=== PATIENT | male | born 1965 | race Caucasian/White ===

== ENCOUNTER 2018-07-25 20:14 | Emergency (ER) | payer BC, OTHER ==
[2018-07-25] MEDS: IPRATROPIUM (NEB) 0.5 MG/2.5 ML AMP INH (22:11)
[2018-07-25] MEDS: ALBUTEROL 0.083% (NEB) 2.5 MG/3 ML AMP INH (22:11)
[2018-07-25] MEDS: METHYLPREDNISOLONE 125 MG INJ IV (22:34)
[2018-07-25] MEDS: SOD CHLORIDE 0.9% 500 ML IV (22:35)
[2018-07-25 22:46] LABS: ADD MAN DIFF? NO
[2018-07-25 22:50] LABS: WHITE BLOOD COUNT 5.6 10^3/ul (4.8-10.8)
[2018-07-25 22:50] LABS: BASOPHILS % 0.5 % (0.0-2.0); EOSINOPHILS # 0.3 10^3/ul (0.0-0.5); EOSINOPHILS % 4.7 % (0.0-7.0); HEMOGLOBIN 14.5 g/dl (14.0-18.0); LYMPHOCYTES # 1.7 10^3/ul (0.8-2.9); LYMPHOCYTES % 30.5 % (15.0-51.0); MEAN CORPUSCULAR HEMOGLOBIN 30.5 pg (29.0-33.0); MEAN CORPUSCULAR HGB CONC 34.5 g/dl (32.0-37.0); MEAN CORPUSCULAR VOLUME 88.2 fl (82.0-101.0); MEAN PLATELET VOLUME 10.1 fl (7.4-10.4); MONOCYTE # 0.4 10^3/ul (0.3-0.9); MONOCYTES % 6.6 % (0.0-11.0); NEUTROPHIL # 3.2 10^3/ul (1.6-7.5); NEUTROPHILS % 57.5 % (39.0-77.0); PLATELET COUNT 105 10^3/UL (140-415); RED BLOOD COUNT 4.76 10^6/ul (4.70-6.10); RED CELL DISTRIBUTION WIDTH 12.8 % (11.5-14.5)
[2018-07-25 23:06] LABS: ANION GAP 12 (8-16); BLOOD UREA NITROGEN 13 mg/dl (7-20); CALCIUM 9.2 mg/dl (8.4-10.2); CARBON DIOXIDE 31 mmol/L (21-31); CHLORIDE 98 mmol/L (97-110); CREATININE 0.74 mg/dl (0.61-1.24); GLUCOSE 258 mg/dl (70-220); SODIUM 137 mmol/L (135-144)
[2018-07-25] MEDS: OXYCODONE/ACETAMINOPHEN (10/325) TAB PO (23:46)
== END 2018-07-26 00:30 | disposition home or self-care (01) ==
LOC: E/R 07-26 00:30
DX: J22 Unspecified acute lower respiratory infection (principal); J20.9 Acute bronchitis, unspecified; D69.6 Thrombocytopenia, unspecified; I10 Essential (primary) hypertension; E11.9 Type 2 diabetes mellitus without complications; F17.210 Nicotine dependence, cigarettes, uncomplicated; Z79.84 Long term (current) use of oral hypoglycemic drugs
CPT/HCPCS: 36415; 71045; 80048; 82962; 85025; 93005; 94664; 96361; 96374; 99284-25

== ENCOUNTER 2018-07-31 05:35 | Inpatient (IN) | payer BC ==
[2018-07-31] MEDS: IPRATROPIUM (NEB) 0.5 MG/2.5 ML AMP NEB (06:09)
[2018-07-31] MEDS: LEVALBUTEROL (NEB) 1.25 MG/0.5 ML AMP INH (06:09)
[2018-07-31 06:57] LABS: ADD MAN DIFF? NO
[2018-07-31 06:58] LABS: WHITE BLOOD COUNT 11.2 10^3/ul (4.8-10.8)
[2018-07-31 06:59] LABS: BASOPHILS % 0.3 % (0.0-2.0); EOSINOPHILS # 0.1 10^3/ul (0.0-0.5); EOSINOPHILS % 0.7 % (0.0-7.0); HEMATOCRIT 46.8 % (42.0-52.0); HEMOGLOBIN 16.2 g/dl (14.0-18.0); LYMPHOCYTES # 2.4 10^3/ul (0.8-2.9); LYMPHOCYTES % 21.2 % (15.0-51.0); MEAN CORPUSCULAR HEMOGLOBIN 30.3 pg (29.0-33.0); MEAN CORPUSCULAR HGB CONC 34.6 g/dl (32.0-37.0); MEAN CORPUSCULAR VOLUME 87.6 fl (82.0-101.0); MONOCYTE # 0.7 10^3/ul (0.3-0.9); MONOCYTES % 6.1 % (0.0-11.0); NEUTROPHILS % 71.4 % (39.0-77.0); PLATELET COUNT 118 10^3/UL (140-415); RED BLOOD COUNT 5.34 10^6/ul (4.70-6.10); RED CELL DISTRIBUTION WIDTH 13.1 % (11.5-14.5)
[2018-07-31] MEDS: CEFTRIAXONE 1 GM/50 ML (PMX) 50 ML IVPB (06:59)
[2018-07-31] MEDS: SODIUM CHLORIDE 0.9% 1L BAG IV* (06:59)
[2018-07-31 07:18] LABS: INR 0.96; PROTIME 12.9 Sec (11.9-14.9)
[2018-07-31 07:19] LABS: PARTIAL THROMBOPLASTIN TIME 24.2 Sec (25.0-35.0)
[2018-07-31 07:30] LABS: ANION GAP 16 (8-16); BLOOD UREA NITROGEN 25 mg/dl (7-20); CALCIUM 10.2 mg/dl (8.4-10.2); CARBON DIOXIDE 31 mmol/L (21-31); CHLORIDE 96 mmol/L (97-110); CREATININE 0.94 mg/dl (0.61-1.24); POTASSIUM 3.8 mmol/L (3.5-5.1); SODIUM 139 mmol/L (135-144)
[2018-07-31 07:31] LABS: GLUCOSE 467 mg/dl (70-220)
[2018-07-31] MEDS: OXYCODONE/ACETAMINOPHEN (5/325) TAB PO ×2 (07:33→22:17)
[2018-07-31 07:35] LABS: LACTIC ACID 3.3 mmol/L (0.5-2.0)
[2018-07-31] MEDS: ALBUTEROL 0.5% (NEB) 2.5 MG/0.5 ML AMP NEB (07:40)
[2018-07-31] MEDS: MAGNESIUM SULFATE 2 GM/50 ML 50 ML IVPB (07:47)
[2018-07-31 07:55] LABS: TROPONIN-I < 0.012 ng/ml (0.000-0.120)
[2018-07-31] MEDS ORDERED: NACL 0.9% 3 ML SYG IV (08:30)
[2018-07-31] MEDS ORDERED: NA PHOSPHATE/BIPHOS 133 ML ENEMA PR (08:30)
[2018-07-31] MEDS: INSULIN ASPART [NOVOLOG] 3 ML PEN SC ×5 (08:30→21:58)
[2018-07-31] MEDS: INSULIN GLARGINE [LANTus] (100 UNITS/ML) SYG SC ×3 (08:30→21:57)
[2018-07-31] MEDS: AZITHROMYCIN 500MG/NS (PMX) 250 ML IVPB (08:49)
[2018-07-31] MEDS: NICOTINE (14 MG/24 HR) PATCH TRANSDERM (09:00)
[2018-07-31] MEDS: FAMOTIDINE 20 MG TAB PO ×2 (09:00→21:54)
[2018-07-31] MEDS: CEFEPIME 1GM/50 ML (PMX) 50 ML IV ×3 (09:00→23:56)
[2018-07-31] MEDS: FLUTICASONE/VILANTEROL 200-25 INH DEVICE INH ×2 (09:00→16:00)
[2018-07-31 09:16] LABS: LACTIC ACID 4.2 mmol/L (0.5-2.0)
[2018-07-31] MEDS: ACCU-CHEK XX ×5 (10:00→20:37)
[2018-07-31 11:07] LABS: LACTIC ACID 2.7 mmol/L (0.5-2.0)
[2018-07-31] MEDS ORDERED: ACCU-CHEK XX (11:30)
[2018-07-31] MEDS ORDERED: INSULIN ASPART [NOVOLOG] 3 ML PEN SC (11:50)
[2018-07-31] MEDS: ALBUTEROL/IPRATROPIUM (NEB) 3 ML AMP NEB ×4 (12:18→20:42)
[2018-07-31] MEDS ORDERED: GLUCOSE GEL 15 GRAM TUBE PO ×2 (13:30)
[2018-07-31] MEDS ORDERED: GLUCAGON 1 MG INJ IM (13:30)
[2018-07-31] MEDS ORDERED: DEXTROSE 50% 50 ML SYRINGE IV ×2 (13:30)
[2018-07-31] MEDS ORDERED: GLUCOSE GEL 15 GRAM TUBE BUCCAL (13:30)
[2018-07-31] MEDS: METHADONE 10 MG TAB PO ×2 (14:00→22:00)
[2018-07-31] MEDS: HEPARIN 5,000 UNIT/0.5 ML VIAL SC ×2 (14:00→21:56)
[2018-07-31] MEDS: predniSONE 20 MG TAB PO (14:59)
[2018-07-31] MEDS: NPH, HUMAN INSULIN ISOPHANE 3ML VIAL SC (15:06)
[2018-07-31] MEDS: LOSARTAN 50 MG TAB PO (15:07)
[2018-07-31] MEDS: LINAGLIPTIN 5 MG TABLET PO (15:07)
[2018-07-31] MEDS: metFORMIN 500 MG TAB PO ×2 (15:08→21:55)
[2018-07-31] MEDS: HYDROCHLOROTHIAZIDE 25 MG TAB PO (15:10)
[2018-07-31] MEDS: MULTIVITAMINS THERAPEUTIC TAB PO (15:10)
[2018-07-31] MEDS: MONTELUKAST 10 MG TAB PO (21:55)
[2018-07-31] MEDS: SOD CHLORIDE 0.9% 1,000 ML IV (23:56)
[2018-08-01] MEDS: NICOTINE (14 MG/24 HR) PATCH TRANSDERM ×2 (00:13→08:08)
[2018-08-01] MEDS: METHADONE 10 MG TAB PO (01:14)
[2018-08-01] MEDS: ALBUTEROL/IPRATROPIUM (NEB) 3 ML AMP NEB ×6 (01:31→20:46)
[2018-08-01] MEDS: HEPARIN 5,000 UNIT/0.5 ML VIAL SC ×3 (06:42→22:49)
[2018-08-01 06:53] LABS: ADD MAN DIFF? NO
[2018-08-01 06:57] LABS: WHITE BLOOD COUNT 8.4 10^3/ul (4.8-10.8)
[2018-08-01 06:57] LABS: ABNORMAL IP MESSAGE 1; BASOPHILS % 0.2 % (0.0-2.0); EOSINOPHILS # 0.1 10^3/ul (0.0-0.5); EOSINOPHILS % 1.2 % (0.0-7.0); HEMATOCRIT 40.2 % (42.0-52.0); HEMOGLOBIN 13.4 g/dl (14.0-18.0); LYMPHOCYTES # 1.7 10^3/ul (0.8-2.9); LYMPHOCYTES % 19.8 % (15.0-51.0); MEAN CORPUSCULAR HEMOGLOBIN 30.1 pg (29.0-33.0); MEAN CORPUSCULAR HGB CONC 33.3 g/dl (32.0-37.0); MEAN CORPUSCULAR VOLUME 90.3 fl (82.0-101.0); MEAN PLATELET VOLUME 10.3 fl (7.4-10.4); MONOCYTE # 0.4 10^3/ul (0.3-0.9); MONOCYTES % 5.2 % (0.0-11.0); NEUTROPHIL # 6.1 10^3/ul (1.6-7.5); NEUTROPHILS % 73.1 % (39.0-77.0); PLATELET COUNT 93 10^3/UL (140-415); POSITIVE DIFF @See below; RED BLOOD COUNT 4.45 10^6/ul (4.70-6.10); RED CELL DISTRIBUTION WIDTH 13.1 % (11.5-14.5)
[2018-08-01 07:44] LABS: ALANINE AMINOTRANSFERASE 102 IU/L (13-69); ALBUMIN 3.3 g/dl (3.3-4.9); ALKALINE PHOSPHATASE 74 IU/L (42-121); ANION GAP 13 (8-16); ASPARTATE AMINO TRANSFERASE 38 IU/L (15-46); BILIRUBIN,INDIRECT 0.4 mg/dl (0-1.1); BILIRUBIN,TOTAL 0.4 mg/dl (0.2-1.3); BLOOD UREA NITROGEN 17 mg/dl (7-20); CALCIUM 8.8 mg/dl (8.4-10.2); CARBON DIOXIDE 26 mmol/L (21-31); CHLORIDE 103 mmol/L (97-110); CREATININE 0.78 mg/dl (0.61-1.24); GLUCOSE 321 mg/dl (70-220); MAGNESIUM 2.1 mg/dl (1.7-2.5); POTASSIUM 3.2 mmol/L (3.5-5.1); SODIUM 139 mmol/L (135-144); TOTAL PROTEIN 6.6 g/dl (6.1-8.1)
[2018-08-01] MEDS: INSULIN GLARGINE [LANTus] (100 UNITS/ML) SYG SC ×2 (08:00→20:39)
[2018-08-01] MEDS: ACCU-CHEK XX ×6 (08:01→20:31)
[2018-08-01] MEDS: CEFEPIME 1GM/50 ML (PMX) 50 ML IV ×2 (08:06→20:32)
[2018-08-01] MEDS: FLUTICASONE/VILANTEROL 200-25 INH DEVICE INH (08:07)
[2018-08-01] MEDS: LINAGLIPTIN 5 MG TABLET PO (08:08)
[2018-08-01] MEDS: EMPAGLIFLOZIN 10 MG TABLET PO (08:08)
[2018-08-01] MEDS: LOSARTAN 50 MG TAB PO (08:08)
[2018-08-01] MEDS: MULTIVITAMINS THERAPEUTIC TAB PO (08:08)
[2018-08-01] MEDS: OXYCODONE/ACETAMINOPHEN (5/325) TAB PO (08:09)
[2018-08-01] MEDS: metFORMIN 500 MG TAB PO ×2 (08:09→17:19)
[2018-08-01] MEDS: predniSONE 20 MG TAB PO (08:09)
[2018-08-01] MEDS: HYDROCHLOROTHIAZIDE 25 MG TAB PO (08:10)
[2018-08-01] MEDS: INSULIN ASPART [NOVOLOG] 3 ML PEN SC ×4 (08:13→17:20)
[2018-08-01] MEDS: FAMOTIDINE 20 MG TAB PO ×2 (08:22→20:31)
[2018-08-01] MEDS: AZITHROMYCIN 250 MG TAB PO (08:22)
[2018-08-01] MEDS: POTASSIUM CHLORIDE (SR) 20 MEQ TAB PO (11:44)
[2018-08-01] MEDS: CELECOXIB 100 MG CAP PO ×2 (11:45→20:31)
[2018-08-01] MEDS: LORAZEPAM 1 MG TAB PO (11:46)
[2018-08-01] MEDS: MONTELUKAST 10 MG TAB PO (20:32)
[2018-08-02] MEDS: ALBUTEROL/IPRATROPIUM (NEB) 3 ML AMP NEB ×6 (01:09→21:11)
[2018-08-02] MEDS: OXYCODONE/ACETAMINOPHEN (5/325) TAB PO ×2 (03:53→10:09)
[2018-08-02] MEDS: HYDROCODONE/APAP (5/325) TAB PO (05:59)
[2018-08-02] MEDS: HEPARIN 5,000 UNIT/0.5 ML VIAL SC ×3 (06:35→21:53)
[2018-08-02] MEDS: ACCU-CHEK XX ×6 (08:04→19:55)
[2018-08-02] MEDS: INSULIN ASPART [NOVOLOG] 3 ML PEN SC ×6 (08:09→21:51)
[2018-08-02] MEDS: NPH, HUMAN INSULIN ISOPHANE 3ML VIAL SC ×2 (08:10→10:24)
[2018-08-02] MEDS: FLUTICASONE/VILANTEROL 200-25 INH DEVICE INH (08:12)
[2018-08-02] MEDS: NICOTINE (14 MG/24 HR) PATCH TRANSDERM (08:13)
[2018-08-02] MEDS: CEFEPIME 1GM/50 ML (PMX) 50 ML IV ×2 (08:15→21:48)
[2018-08-02] MEDS: metFORMIN 500 MG TAB PO ×2 (08:16→16:56)
[2018-08-02] MEDS: HYDROCHLOROTHIAZIDE 25 MG TAB PO (08:17)
[2018-08-02] MEDS: LINAGLIPTIN 5 MG TABLET PO (08:17)
[2018-08-02] MEDS: EMPAGLIFLOZIN 10 MG TABLET PO (08:17)
[2018-08-02] MEDS: CELECOXIB 100 MG CAP PO ×2 (08:17→21:48)
[2018-08-02] MEDS: LOSARTAN 50 MG TAB PO (08:17)
[2018-08-02] MEDS: DOCUSATE SODIUM 100 MG CAP PO (08:18)
[2018-08-02] MEDS: predniSONE 20 MG TAB PO (08:18)
[2018-08-02] MEDS: FAMOTIDINE 20 MG TAB PO ×2 (08:18→21:49)
[2018-08-02] MEDS: AZITHROMYCIN 250 MG TAB PO (08:18)
[2018-08-02] MEDS: MULTIVITAMINS THERAPEUTIC TAB PO (08:18)
[2018-08-02] MEDS ORDERED: E LYTES MM (08:30)
[2018-08-02] MEDS ORDERED: CARBOXYMETHYLCELLULOSE MM (08:30)
[2018-08-02] MEDS ORDERED: BIOTENE DRY MOUTH MOISTURIZING MM (10:00)
[2018-08-02] MEDS: TIOTROPIUM 18 MCG CAPSULE INHA DEV INH (10:08)
[2018-08-02] MEDS: POTASSIUM CHLORIDE (SR) 20 MEQ TAB PO (10:09)
[2018-08-02] MEDS ORDERED: INSULIN ASPART [NOVOLOG] 3 ML PEN SC (11:50)
[2018-08-02] MEDS: BIOTENE DRY MOUTH MOISTURIZING MM (12:02)
[2018-08-02] MEDS: DICLOFENAC SODIUM 1% GEL 100 GM TUBE TP ×4 (12:04→21:50)
[2018-08-02] MEDS: METHYLNALTREXONE 12 MG/0.6 ML VIAL SC (13:29)
[2018-08-02] MEDS: DICYCLOMINE 10 MG CAP PO (18:08)
[2018-08-02] MEDS: INSULIN GLARGINE [LANTus] (100 UNITS/ML) SYG SC (21:48)
[2018-08-02] MEDS: MONTELUKAST 10 MG TAB PO (21:49)
[2018-08-02] MEDS: AMLODIPINE 2.5 MG TAB PO (21:49)
[2018-08-03] MEDS: OXYCODONE/ACETAMINOPHEN (5/325) TAB PO ×3 (00:06→18:10)
[2018-08-03] MEDS: ALBUTEROL/IPRATROPIUM (NEB) 3 ML AMP NEB ×6 (01:10→21:03)
[2018-08-03] MEDS: LORAZEPAM 1 MG TAB PO (03:18)
[2018-08-03] MEDS: ALBUTEROL/IPRATROPIUM (NEB) 3 ML AMP HHN (04:18)
[2018-08-03 05:57] LABS: AADO2 Arterial 90.8 mmHg (7.0-24.0); Allen Test ACCEPTAB; Arterial Base Excess 3.7 mmol/L (-3.0-3); Arterial Blood Gas Oxygen Sat 97.1 mmHG (95.0-98.0); Arterial COHb 0.4 % (0.0-3.0); Arterial Fraction of Oxyhgb 96.4 % (93.0-99.0); Arterial HCO3 28.9 mmol/L (22.0-26.0); Arterial MetHb 0.3 % (0.0-1.5); Arterial Total Hemglobin 14.8 g/dl (12.0-18.0); Arterial pCO2 45.8 mmhg (35-45); MODE NASAL CANNULA; Site Right Radial
[2018-08-03] MEDS: HEPARIN 5,000 UNIT/0.5 ML VIAL SC ×3 (06:06→21:29)
[2018-08-03] MEDS: ACCU-CHEK XX ×6 (07:25→19:55)
[2018-08-03] MEDS: TIOTROPIUM 18 MCG CAPSULE INHA DEV INH (08:41)
[2018-08-03] MEDS: metFORMIN 500 MG TAB PO ×2 (08:42→18:03)
[2018-08-03] MEDS: LINAGLIPTIN 5 MG TABLET PO (08:42)
[2018-08-03] MEDS: FAMOTIDINE 20 MG TAB PO ×2 (08:43→21:11)
[2018-08-03] MEDS: LOSARTAN 50 MG TAB PO (08:43)
[2018-08-03] MEDS: EMPAGLIFLOZIN 10 MG TABLET PO (08:43)
[2018-08-03] MEDS: HYDROCHLOROTHIAZIDE 25 MG TAB PO (08:43)
[2018-08-03] MEDS: predniSONE 20 MG TAB PO (08:43)
[2018-08-03] MEDS: CELECOXIB 100 MG CAP PO ×2 (08:43→21:10)
[2018-08-03] MEDS: MULTIVITAMINS THERAPEUTIC TAB PO (08:43)
[2018-08-03] MEDS: DICLOFENAC SODIUM 1% GEL 100 GM TUBE TP ×4 (08:44→21:13)
[2018-08-03] MEDS: NICOTINE (14 MG/24 HR) PATCH TRANSDERM (08:44)
[2018-08-03] MEDS: METHYLNALTREXONE 12 MG/0.6 ML VIAL SC (08:44)
[2018-08-03] MEDS: CEFEPIME 1GM/50 ML (PMX) 50 ML IV ×2 (08:45→21:09)
[2018-08-03] MEDS: FLUTICASONE/VILANTEROL 200-25 INH DEVICE INH (08:51)
[2018-08-03] MEDS: INSULIN ASPART [NOVOLOG] 3 ML PEN SC ×7 (09:05→21:29)
[2018-08-03] MEDS: NPH, HUMAN INSULIN ISOPHANE 3ML VIAL SC (09:20)
[2018-08-03 11:32] LABS: ADD MAN DIFF? NO
[2018-08-03 11:38] LABS: BASOPHILS % 0.2 % (0.0-2.0); EOSINOPHILS # 0.2 10^3/ul (0.0-0.5); EOSINOPHILS % 3.9 % (0.0-7.0); HEMATOCRIT 41.6 % (42.0-52.0); HEMOGLOBIN 13.7 g/dl (14.0-18.0); LYMPHOCYTES # 1.1 10^3/ul (0.8-2.9); LYMPHOCYTES % 25.6 % (15.0-51.0); MEAN CORPUSCULAR HEMOGLOBIN 29.8 pg (29.0-33.0); MEAN CORPUSCULAR HGB CONC 32.9 g/dl (32.0-37.0); MEAN CORPUSCULAR VOLUME 90.4 fl (82.0-101.0); MEAN PLATELET VOLUME 10.2 fl (7.4-10.4); MONOCYTE # 0.4 10^3/ul (0.3-0.9); MONOCYTES % 8.4 % (0.0-11.0); NEUTROPHIL # 2.7 10^3/ul (1.6-7.5); NEUTROPHILS % 61.2 % (39.0-77.0); PLATELET COUNT 113 10^3/UL (140-415); RED CELL DISTRIBUTION WIDTH 13.1 % (11.5-14.5)
[2018-08-03 11:38] LABS: WHITE BLOOD COUNT 4.4 10^3/ul (4.8-10.8)
[2018-08-03] MEDS: BIOTENE DRY MOUTH MOISTURIZING MM (11:50)
[2018-08-03 12:00] LABS: ANION GAP 11 (8-16); BLOOD UREA NITROGEN 21 mg/dl (7-20); CALCIUM 9.4 mg/dl (8.4-10.2); CARBON DIOXIDE 29 mmol/L (21-31); CHLORIDE 101 mmol/L (97-110); GLUCOSE 168 mg/dl (70-220); POTASSIUM 3.4 mmol/L (3.5-5.1); SODIUM 138 mmol/L (135-144)
[2018-08-03 12:16] LABS: CREATININE 0.71 mg/dl (0.61-1.24)
[2018-08-03] MEDS ORDERED: VANCOMYCIN IV PER PHARMACY XX (16:30)
[2018-08-03] MEDS: POTASSIUM CHLORIDE (SR) 20 MEQ TAB PO (18:42)
[2018-08-03] MEDS: RIFAMPIN 300 MG CAP PO (21:08)
[2018-08-03] MEDS: MONTELUKAST 10 MG TAB PO (21:11)
[2018-08-03] MEDS: AMLODIPINE 2.5 MG TAB PO (21:12)
[2018-08-03] MEDS: INSULIN GLARGINE [LANTus] (100 UNITS/ML) SYG SC (21:30)
[2018-08-03] MEDS: VANCOMYCIN 2 GM in SOD CHLORIDE 0.9% 500 ML IVPB (21:50)
[2018-08-04] MEDS: ALBUTEROL/IPRATROPIUM (NEB) 3 ML AMP NEB ×6 (02:09→19:31)
[2018-08-04 05:43] LABS: ADD MAN DIFF? NO
[2018-08-04 05:46] LABS: WHITE BLOOD COUNT 4.5 10^3/ul (4.8-10.8)
[2018-08-04 05:46] LABS: BASOPHILS % 0.2 % (0.0-2.0); EOSINOPHILS % 0.7 % (0.0-7.0); HEMATOCRIT 40.6 % (42.0-52.0); HEMOGLOBIN 13.6 g/dl (14.0-18.0); LYMPHOCYTES # 0.9 10^3/ul (0.8-2.9); LYMPHOCYTES % 19.3 % (15.0-51.0); MEAN CORPUSCULAR HEMOGLOBIN 30.3 pg (29.0-33.0); MEAN CORPUSCULAR HGB CONC 33.5 g/dl (32.0-37.0); MEAN CORPUSCULAR VOLUME 90.4 fl (82.0-101.0); MEAN PLATELET VOLUME 9.7 fl (7.4-10.4); MONOCYTE # 0.4 10^3/ul (0.3-0.9); MONOCYTES % 8.3 % (0.0-11.0); NEUTROPHIL # 3.2 10^3/ul (1.6-7.5); NEUTROPHILS % 70.6 % (39.0-77.0); PLATELET COUNT 108 10^3/UL (140-415); RED BLOOD COUNT 4.49 10^6/ul (4.70-6.10); RED CELL DISTRIBUTION WIDTH 13.2 % (11.5-14.5)
[2018-08-04 06:09] LABS: ALANINE AMINOTRANSFERASE 162 IU/L (13-69); ALBUMIN 3.6 g/dl (3.3-4.9); ALBUMIN/GLOBULIN RATIO 1.09; ALKALINE PHOSPHATASE 71 IU/L (42-121); ANION GAP 12 (8-16); ASPARTATE AMINO TRANSFERASE 90 IU/L (15-46); BILIRUBIN,INDIRECT 0.2 mg/dl (0-1.1); BILIRUBIN,TOTAL 0.2 mg/dl (0.2-1.3); BLOOD UREA NITROGEN 20 mg/dl (7-20); CALCIUM 9.4 mg/dl (8.4-10.2); CARBON DIOXIDE 30 mmol/L (21-31); CHLORIDE 102 mmol/L (97-110); CREATININE 0.88 mg/dl (0.61-1.24); GLUCOSE 289 mg/dl (70-220); POTASSIUM 4.6 mmol/L (3.5-5.1); SODIUM 139 mmol/L (135-144); TOTAL PROTEIN 6.9 g/dl (6.1-8.1)
[2018-08-04] MEDS: HEPARIN 5,000 UNIT/0.5 ML VIAL SC ×3 (06:15→21:59)
[2018-08-04] MEDS: OXYCODONE/ACETAMINOPHEN (5/325) TAB PO ×3 (06:18→22:01)
[2018-08-04] MEDS: ACCU-CHEK XX ×6 (07:30→20:11)
[2018-08-04 07:46] LABS: ERYTHROCYTE SEDIMENTATION RATE 63 mm/Hr (0-20)
[2018-08-04] MEDS: CEFEPIME 1GM/50 ML (PMX) 50 ML IV ×2 (09:27→21:24)
[2018-08-04] MEDS: RIFAMPIN 300 MG CAP PO (09:28)
[2018-08-04] MEDS: CELECOXIB 100 MG CAP PO ×2 (09:28→21:23)
[2018-08-04] MEDS: metFORMIN 500 MG TAB PO ×2 (09:28→17:38)
[2018-08-04] MEDS: predniSONE 20 MG TAB PO (09:28)
[2018-08-04] MEDS: METHYLNALTREXONE 12 MG/0.6 ML VIAL SC (09:29)
[2018-08-04] MEDS: NICOTINE (14 MG/24 HR) PATCH TRANSDERM (09:29)
[2018-08-04] MEDS: MULTIVITAMINS THERAPEUTIC TAB PO (09:29)
[2018-08-04] MEDS: LINAGLIPTIN 5 MG TABLET PO (09:29)
[2018-08-04] MEDS: EMPAGLIFLOZIN 10 MG TABLET PO (09:29)
[2018-08-04] MEDS: INSULIN ASPART [NOVOLOG] 3 ML PEN SC ×7 (09:32→21:00)
[2018-08-04] MEDS: NPH, HUMAN INSULIN ISOPHANE 3ML VIAL SC (09:34)
[2018-08-04] MEDS: HYDROCHLOROTHIAZIDE 25 MG TAB PO (09:36)
[2018-08-04] MEDS: FAMOTIDINE 20 MG TAB PO ×2 (09:36→21:23)
[2018-08-04] MEDS: DICLOFENAC SODIUM 1% GEL 100 GM TUBE TP ×4 (09:36→21:24)
[2018-08-04] MEDS: LOSARTAN 50 MG TAB PO (09:36)
[2018-08-04] MEDS: TIOTROPIUM 18 MCG CAPSULE INHA DEV INH (09:37)
[2018-08-04] MEDS: FLUTICASONE/VILANTEROL 200-25 INH DEVICE INH (09:38)
[2018-08-04] MEDS: VANCOMYCIN 2 GM in SOD CHLORIDE 0.9% 500 ML IVPB ×2 (10:44→21:59)
[2018-08-04] MEDS: INSULIN GLARGINE [LANTus] (100 UNITS/ML) SYG SC (20:10)
[2018-08-04] MEDS: MONTELUKAST 10 MG TAB PO (21:23)
[2018-08-04] MEDS: AMLODIPINE 2.5 MG TAB PO (21:23)
[2018-08-05] MEDS: ALBUTEROL/IPRATROPIUM (NEB) 3 ML AMP NEB ×6 (00:49→21:16)
[2018-08-05] MEDS: HEPARIN 5,000 UNIT/0.5 ML VIAL SC ×3 (06:27→22:07)
[2018-08-05] MEDS: metFORMIN 500 MG TAB PO ×2 (08:13→18:16)
[2018-08-05] MEDS: MULTIVITAMINS THERAPEUTIC TAB PO (08:13)
[2018-08-05] MEDS: LOSARTAN 50 MG TAB PO (08:13)
[2018-08-05] MEDS: RIFAMPIN 300 MG CAP PO (08:13)
[2018-08-05] MEDS: LINAGLIPTIN 5 MG TABLET PO (08:13)
[2018-08-05] MEDS: CELECOXIB 100 MG CAP PO ×2 (08:14→22:02)
[2018-08-05] MEDS: FAMOTIDINE 20 MG TAB PO ×2 (08:14→20:18)
[2018-08-05] MEDS: CEFEPIME 1GM/50 ML (PMX) 50 ML IV ×2 (08:14→20:18)
[2018-08-05] MEDS: HYDROCHLOROTHIAZIDE 25 MG TAB PO (08:14)
[2018-08-05] MEDS: predniSONE 10 MG TAB PO (08:15)
[2018-08-05] MEDS: NPH, HUMAN INSULIN ISOPHANE 3ML VIAL SC (08:17)
[2018-08-05] MEDS: FLUTICASONE/VILANTEROL 200-25 INH DEVICE INH (08:18)
[2018-08-05] MEDS: INSULIN ASPART [NOVOLOG] 3 ML PEN SC ×7 (08:18→20:09)
[2018-08-05] MEDS: DICLOFENAC SODIUM 1% GEL 100 GM TUBE TP ×4 (08:18→20:19)
[2018-08-05] MEDS: NICOTINE (14 MG/24 HR) PATCH TRANSDERM (08:19)
[2018-08-05] MEDS: ACCU-CHEK XX ×6 (08:21→20:18)
[2018-08-05] MEDS: predniSONE 20 MG TAB PO (08:56)
[2018-08-05] MEDS: METHYLNALTREXONE 12 MG/0.6 ML VIAL SC (09:14)
[2018-08-05 10:15] LABS: VANCOMYCIN,TROUGH 13.1 ug/ml (10.0-20.0)
[2018-08-05 10:27] LABS: AADO2 Arterial 25.4 mmHg (7.0-24.0); Allen Test ACCEPTAB; Arterial Blood Gas Oxygen Sat 94.5 mmHG (95.0-98.0); Arterial COHb 0.3 % (0.0-3.0); Arterial HCO3 30.1 mmol/L (22.0-26.0); Arterial MetHb 0.2 % (0.0-1.5); Arterial Total Hemglobin 14.8 g/dl (12.0-18.0); Arterial pCO2 45.7 mmhg (35-45); MODE ROOM AIR; Site Right Radial
[2018-08-05] MEDS: CLOTRIMAZOLE 10 MG TROCHE MT ×5 (10:39→22:01)
[2018-08-05] MEDS: EMPAGLIFLOZIN 10 MG TABLET PO (10:40)
[2018-08-05] MEDS: TIOTROPIUM 18 MCG CAPSULE INHA DEV INH (10:40)
[2018-08-05] MEDS: VANCOMYCIN 2 GM in SOD CHLORIDE 0.9% 500 ML IVPB ×2 (12:31→22:43)
[2018-08-05] MEDS: LACTATED RINGER'S 1,000 ML IV ×2 (12:31→23:28)
[2018-08-05] MEDS: OXYCODONE/ACETAMINOPHEN (5/325) TAB PO ×2 (14:49→20:49)
[2018-08-05] MEDS: INSULIN GLARGINE [LANTus] (100 UNITS/ML) SYG SC (20:20)
[2018-08-05] MEDS: AMLODIPINE 2.5 MG TAB PO (22:02)
[2018-08-05] MEDS: MONTELUKAST 10 MG TAB PO (22:03)
[2018-08-06] MEDS: ALBUTEROL/IPRATROPIUM (NEB) 3 ML AMP NEB ×6 (01:21→20:06)
[2018-08-06] MEDS: HEPARIN 5,000 UNIT/0.5 ML VIAL SC ×3 (06:17→22:00)
[2018-08-06] MEDS: ACCU-CHEK XX ×6 (07:00→20:30)
[2018-08-06] MEDS: INSULIN ASPART [NOVOLOG] 3 ML PEN SC ×7 (08:00→20:30)
[2018-08-06 08:10] LABS: CREATININE 0.71 mg/dl (0.61-1.24)
[2018-08-06 08:10] LABS: BLOOD UREA NITROGEN 24 mg/dl (7-20)
[2018-08-06] MEDS: metFORMIN 500 MG TAB PO ×2 (08:15→17:18)
[2018-08-06] MEDS: NPH, HUMAN INSULIN ISOPHANE 3ML VIAL SC (08:22)
[2018-08-06] MEDS: CELECOXIB 100 MG CAP PO ×2 (08:41→21:59)
[2018-08-06] MEDS: predniSONE 20 MG TAB PO (08:41)
[2018-08-06] MEDS: FAMOTIDINE 20 MG TAB PO ×2 (08:41→21:58)
[2018-08-06] MEDS: EMPAGLIFLOZIN 10 MG TABLET PO (08:41)
[2018-08-06] MEDS: DICLOFENAC SODIUM 1% GEL 100 GM TUBE TP ×4 (08:42→21:59)
[2018-08-06] MEDS: NICOTINE (14 MG/24 HR) PATCH TRANSDERM (08:42)
[2018-08-06] MEDS: TIOTROPIUM 18 MCG CAPSULE INHA DEV INH (08:42)
[2018-08-06] MEDS: RIFAMPIN 300 MG CAP PO (08:43)
[2018-08-06] MEDS: LINAGLIPTIN 5 MG TABLET PO (08:43)
[2018-08-06] MEDS: HYDROCHLOROTHIAZIDE 25 MG TAB PO (08:43)
[2018-08-06] MEDS: LOSARTAN 50 MG TAB PO (08:43)
[2018-08-06] MEDS: METHYLNALTREXONE 12 MG/0.6 ML VIAL SC (08:44)
[2018-08-06] MEDS: CLOTRIMAZOLE 10 MG TROCHE MT ×5 (08:45→21:58)
[2018-08-06] MEDS: FLUTICASONE/VILANTEROL 200-25 INH DEVICE INH (08:45)
[2018-08-06] MEDS: CEFEPIME 1GM/50 ML (PMX) 50 ML IV (08:45)
[2018-08-06] MEDS: MULTIVITAMINS THERAPEUTIC TAB PO (09:00)
[2018-08-06] MEDS: VANCOMYCIN 2 GM in SOD CHLORIDE 0.9% 500 ML IVPB ×2 (09:38→21:58)
[2018-08-06] MEDS: BIOTENE DRY MOUTH MOISTURIZING MM ×2 (12:55→21:59)
[2018-08-06] MEDS: TRIMETHOPRIM/SULFAMETHOX (DS) TAB PO ×2 (15:12→21:58)
[2018-08-06] MEDS: LACTATED RINGER'S 1,000 ML IV (15:12)
[2018-08-06] MEDS: OXYCODONE/ACETAMINOPHEN (5/325) TAB PO ×2 (15:33→22:00)
[2018-08-06] MEDS: INSULIN GLARGINE [LANTus] (100 UNITS/ML) SYG SC (20:30)
[2018-08-06] MEDS: AMLODIPINE 2.5 MG TAB PO (21:58)
[2018-08-06] MEDS: MONTELUKAST 10 MG TAB PO (21:58)
[2018-08-07] MEDS: DICYCLOMINE 10 MG CAP PO (00:20)
[2018-08-07] MEDS: ALBUTEROL/IPRATROPIUM (NEB) 3 ML AMP NEB ×4 (00:48→13:53)
[2018-08-07] MEDS: LACTATED RINGER'S 1,000 ML IV ×2 (03:30→10:35)
[2018-08-07] MEDS: HEPARIN 5,000 UNIT/0.5 ML VIAL SC ×2 (06:56→14:00)
[2018-08-07] MEDS: ACCU-CHEK XX ×4 (06:56→14:00)
[2018-08-07] MEDS: FLUTICASONE/VILANTEROL 200-25 INH DEVICE INH (08:27)
[2018-08-07] MEDS: metFORMIN 500 MG TAB PO (08:27)
[2018-08-07] MEDS: TIOTROPIUM 18 MCG CAPSULE INHA DEV INH (08:28)
[2018-08-07] MEDS: TRIMETHOPRIM/SULFAMETHOX (DS) TAB PO (08:29)
[2018-08-07] MEDS: CELECOXIB 100 MG CAP PO (08:29)
[2018-08-07] MEDS: FAMOTIDINE 20 MG TAB PO (08:30)
[2018-08-07] MEDS: RIFAMPIN 300 MG CAP PO (08:30)
[2018-08-07] MEDS: LINAGLIPTIN 5 MG TABLET PO (08:30)
[2018-08-07] MEDS: LOSARTAN 50 MG TAB PO (08:30)
[2018-08-07] MEDS: HYDROCHLOROTHIAZIDE 25 MG TAB PO (08:30)
[2018-08-07] MEDS: predniSONE 20 MG TAB PO (08:30)
[2018-08-07] MEDS: METHYLNALTREXONE 12 MG/0.6 ML VIAL SC (08:31)
[2018-08-07] MEDS: NICOTINE (14 MG/24 HR) PATCH TRANSDERM (08:31)
[2018-08-07] MEDS: DICLOFENAC SODIUM 1% GEL 100 GM TUBE TP ×2 (08:31→12:54)
[2018-08-07] MEDS: EMPAGLIFLOZIN 10 MG TABLET PO (08:37)
[2018-08-07] MEDS: CLOTRIMAZOLE 10 MG TROCHE MT ×3 (08:37→15:00)
[2018-08-07] MEDS: INSULIN ASPART [NOVOLOG] 3 ML PEN SC ×4 (08:44→12:57)
[2018-08-07] MEDS: OXYCODONE/ACETAMINOPHEN (5/325) TAB PO (09:44)
[2018-08-07] MEDS: NPH, HUMAN INSULIN ISOPHANE 3ML VIAL SC (09:45)
[2018-08-07] MEDS: MULTIVITAMINS THERAPEUTIC TAB PO (09:45)
[2018-08-07] MEDS: VANCOMYCIN 2 GM in SOD CHLORIDE 0.9% 500 ML IVPB (10:35)
== END 2018-08-07 16:45 | disposition home health service (06) | DRG 191 ==
LOC: TEL 08-02 18:21 → PP2 08-04 00:29 → 2NE 08-05 09:44 → E/R 05:35 → TEL 08:03
DX: J44.0 Chronic obstructive pulmonary disease with (acute) lower respiratory infection (principal); R65.10 Systemic inflammatory response syndrome (SIRS) of non-infectious origin without acute organ dysfunction; F84.0 Autistic disorder; J44.1 Chronic obstructive pulmonary disease with (acute) exacerbation; J20.9 Acute bronchitis, unspecified; Z72.0 Tobacco use; I10 Essential (primary) hypertension; E11.65 Type 2 diabetes mellitus with hyperglycemia
CPT/HCPCS: 36415; 36600; 71045; 71250; 73562; 80048; 80053; 80202; 82565; 82803; 82962; 83036; 83605; 83735; 84484; 84520; 85025; 85610; 85651; 85730; 86803; 87040; 87070; 93005; 94640; 94644; 94664; 96365; 96375; 97161; 97530; 99291-25